=== PATIENT | female | born 1990 | race Two or more races ===

== ENCOUNTER 2020-09-03 20:38 | Emergency (ER) | payer SELFPAY ==
[~2020-09-03] VITALS: Ht 162.6 cm; Wt 101.8 kg
--- NOTE | 2020-09-03 21:02 | PHYS DOC ---
Past Medical History Past Medical History: No Pertinent History Past Surgical History: No Surgical History Smoking Status: Never Smoker Alcohol Use: None Drug Use: None General Adult EDM: Chief Complaint: ABDOMINAL PAIN IN HPI: HPI: Patient is a 29 year old female who presents with states that her and her sexual intercourse last night and then she began having right lower quadrant intermittent cramping pain. She states that there is nothing that makes it worse or better. She states that she noticed when she wiped some stringy mucus looking blood that happened 3 different times today. She states that she is not bleeding. She states her last period was approximately July 18, 2020. This would be her second baby. She has 1 another baby that was born by and she had no complications. Currently denies no pain. Patient denies urinary symptoms, nausea, vomiting, diarrhea, fever, back pain, chest pain, shortness of breath, cough, headache, dizziness. Review of Systems: Review of Systems: Constitutional: Denies fever or chills. [] Eyes: Denies change in visual acuity. [] HENT: Denies nasal congestion or sore throat. [] Respiratory: Denies cough or shortness of breath. [] Cardiovascular: Denies chest pain or edema. [] GI: + Intermittent right lower cramping abdominal pain, denies nausea, vomiting, bloody stools or diarrhea. [] : Denies dysuria. + Stringy mucus looking blood discharge when going to the restroom x3 [] Musculoskeletal: Denies back pain or joint pain. [] Integument: Denies rash. [] Neurologic: Denies headache, focal weakness or sensory changes. [] Endocrine: Denies polyuria or polydipsia. [] Lymphatic: Denies swollen glands. [] Psychiatric: Denies depression or anxiety. [] Heart Score: Risk Factors: Risk Factors: DM, Current or recent (<one month) smoker, HTN, HLP, family history of CAD, obesity. Risk Scores: Score 0 - 3: 2.5% MACE over next 6 weeks - Discharge Home Score 4 - 6: 20.3% MACE over next 6 weeks - Admit for Clinical Observation Score 7 - 10: 72.7% MACE over next 6 weeks - Early Invasive Strategies Allergies: Allergies: Allergies Coded Allergies Type Severity Reaction Last Updated Verified No Known Drug Allergies 12/03/14 No Physical Exam: PE: Constitutional: Well developed, well nourished, no acute distress, non-toxic appearance. [] HENT: Normocephalic, atraumatic, bilateral external ears normal, oropharynx moist, no oral exudates, nose normal. [] Eyes: PERRLA, EOMI, conjunctiva normal, no discharge. [] Neck: Normal range of motion, no tenderness, supple, no stridor. [] Cardiovascular:Heart rate regular rhythm, no murmur [] Lungs & Thorax: Bilateral breath sounds clear to auscultation [] Abdomen: Bowel sounds normal, soft, no tenderness, no masses, no pulsatile masses. [] Skin: Warm, dry, no erythema, no rash. [] Back: No tenderness, no CVA tenderness. [] Extremities: No tenderness, no cyanosis, no clubbing, ROM intact, no edema. [] Neurologic: Alert and oriented X 3, normal motor function, normal sensory function, no focal deficits noted. [] Psychologic: Affect normal, judgement normal, mood normal. Normal physical exam [] EKG: EKG: [] Radiology/Procedures: Radiology/Procedures: [] Impression: [facility] [address] [place], [place] [id number] IMAGING REPORT Signed PATIENT: JAMIE TSANG ACCOUNT: [id number] : 1990 LOCATION: ER AGE: 29 SEX: F EXAM STATUS: REG ER ORD. PHYSICIAN: GRACY ZAMORA APRN REASON: right lower abd pain, vag spotting,HCG 5 PROCEDURE: TRANSVAGINAL US TRANSVAGINAL DATE: 09/03/2020 9:58 PM HISTORY: right lower abd pain, vag spotting,HCG 5. LMP 07/18/2020 COMPARISON: None. TECHNIQUE: Transvaginal pelvic ultrasound was performed. FINDINGS: The uterus measures 10.6 x 5.9 x 5.2 cm. The myometrium demonstrates normal echogenicity without focal lesion. The endometrial echo measures 12 mm. The right ovary measures 4.0 x 3.2 x 2.9 cm. The left ovary measures 2.4 x 1.5 x 1.3 cm. The bilateral ovaries are physiologic in appearance. Normal vascularity in the bilateral ovaries by color Doppler examination. No free fluid. IMPRESSION: No intrauterine is identified. Physiologic appearance of the uterus and ovaries. Electronically signed by: Surinder Malone MD (09/03/2020 10:50 PM) [facility] [[email or web address]] DICTATED and SIGNED BY: SURINDER MALONE MD DATE: 09/03/20 [id number] 0 Course & Med Decision Making: Course & Med Decision Making Pertinent Labs and Imaging studies reviewed. (See chart for details) See HPI. Speaks in full complete sentences. Alert and oriented x4. Abdomen is soft and nontender. Ambulatory with a steady gait. Patient denies any abnormal vaginal discharge and denies any concerns for sexually transmitted diseases. She states that she will be going back to the OB doctor she had prior. No CVA tenderness. Blood work unremarkable. Urine shows no infection. Urine is negative but beta serum is 5. [] Dragon Disclaimer: Dragon Disclaimer: This electronic medical record was generated, in whole or in part, using a voice recognition dictation system. Departure Departure Impression: Primary Impression: Abdominal pain Qualified Codes: R10.31 - Right lower quadrant pain Disposition: 01 DC HOME SELF CARE/HOMELESS Condition: STABLE Referrals: UNKNOWN PCP NAME (PCP) YAEL REYNA Jr, MD Patient Instructions: Abdominal Pain (Nonspecific) Additional Instructions: Follow-up with an OB doctor or primary care in 48 hours to have a repeat pregn joe test or blood test. Begin running a fever or having constant severe pain return to the emergency room. Take Tylenol for pain. GRACY ZAMORA APRN Sep 03, 2020 21:02
[2020-09-03 21:20] LABS: BILIRUBIN,URINE NEGATIVE (NEG); CLARITY,URINE CLEAR; COLOR,URINE YELLOW; NITRITE,URINE NEGATIVE (NEG); PROTEIN,URINE NEGATIVE (NEG-TRACE); UROBILINOGEN,URINE 0.2 mg/dL (0.2 mg/dL)
[2020-09-03 21:23] LABS: BASO # 0.1 x10^3/uL (0.0-0.2); BASO % 1 % (0-3); EOS # 0.2 x10^3/uL (0.0-0.7); EOS % 2 % (0-3); HEMATOCRIT 42.1 % (36.0-47.0); HEMOGLOBIN 14.1 g/dL (12.0-15.5); LYMPH # 2.8 x10^3/uL (1.0-4.8); LYMPH % 27 % (24-48); MEAN CORPUSCULAR HEMOGLOBIN 29 pg (25-35); MEAN CORPUSCULAR HGB CONC 34 g/dL (31-37); MEAN CORPUSCULAR VOLUME 86 fL (79-100); MONO # 0.7 x10^3/uL (0.0-1.1); MONO % 7 % (0-9); NEUT # 6.7 x10^3/uL (1.8-7.7); NEUT % 64 % (31-73); PLATELET COUNT 310 x10^3/uL (140-400); RED BLOOD COUNT 4.88 x10^6/uL (3.50-5.40); RED CELL DISTRIBUTION WIDTH 13.7 % (11.5-14.5); WHITE BLOOD COUNT 10.5 x10^3/uL (4.0-11.0)
[2020-09-03 21:27] LABS: BACTERIA,URINE FEW /HPF (0-FEW); RBC,URINE OCC /HPF (0-2); WBC,URINE OCC /HPF (0-4)
[2020-09-03 21:34] LABS: CALCIUM 8.9 mg/dL (8.5-10.1); CREATININE 0.5 mg/dL (0.6-1.0); GFR 145.9; POTASSIUM 4.2 mmol/L (3.5-5.1)
[2020-09-03 21:38] LABS: ALBUMIN 3.5 g/dL (3.4-5.0); ALBUMIN/GLOBULIN RATIO 0.9 (1.0-1.7); TOTAL BILIRUBIN 0.1 mg/dL (0.2-1.0); TOTAL PROTEIN 7.5 g/dL (6.4-8.2)
[2020-09-03 22:00] VITALS: BP 113/63
--- NOTE | 2020-09-03 22:52 | RAD ---
US TRANSVAGINAL DATE: 09/03/2020 9:58 PM HISTORY: right lower abd pain, vag spotting,HCG 5. LMP 07/18/2020 COMPARISON: None. TECHNIQUE: Transvaginal pelvic ultrasound was performed. FINDINGS: The uterus measures 10.6 x 5.9 x 5.2 cm. The myometrium demonstrates normal echogenicity without foca l lesion. The endometrial echo measures 12 mm. The right ovary measures 4.0 x 3.2 x 2.9 cm. The left ovary measures 2.4 x 1.5 x 1.3 cm. The bilatera l ovaries are physiologic in appearance. Normal vascularity in the bilateral ovaries by color Doppler examination. No free fluid. IMPRESSION: No intrauterine is identified. Physiologic appearance of the uterus and ovaries. Electronically signed by: Min Malone MD (09/03/2020 10:50 PM) [facility]
== END 2020-09-03 23:00 | disposition home or self-care (01) ==
LOC: ER 20:38
DX: O26.891 Other specified pregnancy related conditions, first trimester (principal); R10.31 Right lower quadrant pain; Z3A.00 Weeks of gestation of pregnancy not specified
CPT/HCPCS: 36415; 76830; 80053; 81001; 81025; 84702; 85025; 86850; 86900; 86901; 87086; 99284